=== PATIENT | female | born 1995 | race Caucasian/White ===

== ENCOUNTER 2016-11-15 12:50 | Emergency (ER) | payer SELFPAY ==
[~2016-11-15] VITALS: Ht 167.6 cm; Wt 102.0 kg
[~2016-11-15 12:50] MED LIST: AMOX250S2 PO; CLIN1CAP5 PO; HYDR7.5S PO; PERC5TAB12 PO
[2016-11-15 12:53] VITALS: BP 130/62; PULSE 74; RESP 17; TEMP 98.4; O2SAT 100
--- NOTE | 2016-11-15 13:17 | PD ---
HPI Chief Complaint: Musculoskeletal Complaint Time Seen by Provider: 13:09 Travel History International Travel<30 days: No Contact w/Intl Traveler<30days: No Traveled to known affect area: No History of Present Illness HPI This is a 21-year-old female who presents today with complaints of left shoulder and upper humerus pain. Patient states that yesterday she "blacked out " and fell onto her left side. She states that she was evaluated and seen at [facility]. She states that it's CAT scans and x-rays and did not find any obvious findings. She states that at that time they did not do an x-ray of her left shoulder but she was not having as much pain at that time. She denies any other areas of discomfort. She reports pain with movement therefore limited range of motion secondary to pain. [facility] Past Medical History Medical History: Denies Significant Hx Diminished Hearing: No Immunizations Current: Yes ?: Not LMP: 10/23/16 Past Surgical History Tonsillectomy: Yes (09/05/2014) Social History Alcohol Use: No Tobacco Use: No Substance Use: No Allergies-Medications (Allergen,Severity, Reaction): Coded Allergies: Cipro (Verified Adverse Reaction, Intermediate, N/V, 11/15/16) Reported Meds & Prescriptions Reported Meds & Active Scripts Active No Active Prescriptions or Reported Medications Review of Systems Except as stated in HPI: all other systems reviewed are Neg General / Constitutional: No: Fever HENT: No: Headaches, Neck Pain Cardiovascular: No: Chest Pain or Discomfort, Palpitations Musculoskeletal: Positive: Limited ROM (secondary to pain), Pain (left shoulder and upper humerus), No: Weakness Neurologic: No: Weakness, Dizziness, Headache Physical Exam Narrative GENERAL: Well-nourished, well-developed patient in no distress. SKIN: Focused skin assessment warm/dry. HEAD: Normocephalic/atraumatic. EYES: No scleral icterus. No injection or drainage. NECK: Supple, trachea midline. No JVD or lymphadenopathy. MUSCULOSKELETAL: On examination of the patient's left shoulder, she has tenderness in her left lateral upper humeral distribution. There is no obvious bony deformity. On abduction, she has pain. It is relieved with abduction. NEUROLOGICAL: Awake and alert. Cranial nerves II through XII intact. Motor grossly within normal limits. Five out of 5 muscle strength in all muscle groups. Normal speech. Data Data Last Documented VS Vital Signs Date Time Temp Pulse Resp B/P Pulse Ox O2 Delivery O2 Flow Rate FiO2 11/15/16 12:53 98.4 74 17 130/62 100 Orders Humerus (Min 2vws) (11/15/16 13:11) Shoulder, Limited(2vws) (11/15/16 13:11) MDM Medical Decision Making Medical Screen Exam Complete: Yes Emergency Medical Condition: Yes Differential Diagnosis Contusion versus fracture versus acromioclavicular separation Narrative Course 21-year-old female who had a syncopal episode yesterday, presents today with rectal left shoulder and proximal humerus pain. Patient states that she was fully evaluated yesterday at [facility] however did not have pain at that time. The patient has pain but no obvious instability. X-rays of the humerus and shoulder show no evidence of acute findings. She'll be placed in a sling and swath and told to keep in 7 days per she is instructed to remove it 3-4 times daily and do small circular motions to keep it from freezing up. If pain persists she is instructed to follow up with an orthopedic surgeon. Diagnosis Primary Impression: Contusion of left shoulder Additional Instructions: Wear shoulder immobilizer 7 days. Remove 3-4 times daily and do small circular motions for 5 minutes to keep shoulder from freezing. If pain continues, follow up with orthopedic surgeon. Motrin for discomfort. Ice 24 hours, then moist heat. Scripts No Active Prescriptions or Reported Meds Disposition: 01 DISCHARGE HOME Condition: Stable Luciano David MD Nov 15, 2016 13:17
--- NOTE | 2016-11-15 14:26 | RADRPT ---
EXAM DATE/TIME: 11/15/2016 13:32 [facility] COMPARISON: No previous studies available for comparison. INDICATIONS : Left shoulder pain; fall yesterday. MEDICAL HISTORY : None. SURGICAL HISTORY : None. ENCOUNTER: Initial ACUITY: 1 day PAIN SCORE: 6/10 LOCATION: Left shoulder. FINDINGS: 2 views of the left shoulder demonstrate no fracture or dislocation. Acromioclavicular joint is intac t. Visualized left chest demonstrates no acute finding. There is no soft tissue abnormality. CONCLUSION: No acute left shoulder abnormality. Clifford Simons MD on November 15, 2016 at 14:23 Board Certified Radiologist. This report was verified electronically.
--- NOTE | 2016-11-15 14:26 | RADRPT ---
EXAM DATE/TIME: 11/15/2016 13:36 [facility] COMPARISON: No previous studies available for comparison. INDICATIONS : Left arm pain; fall yesterday. MEDICAL HISTORY : None. SURGICAL HISTORY : None. ENCOUNTER: Initial ACUITY: 1 day PAIN SCORE: 6/10 LOCATION: Left humerus. FINDINGS: 2 views of the left arm demonstrate no fracture or dislocation. Mineralization is normal. No soft tis prerna abnormality or radiopaque foreign body is identified. CONCLUSION: No acute abnormality is identified. Clifford Simons MD on November 15, 2016 at 14:24 Board Certified Radiologist. This report was verified electronically.
[2016-11-15 14:48] VITALS: BP 127/76
== END 2016-11-15 15:12 | disposition home or self-care (01) ==
LOC: PHEFT 12:50
DX: S40.012A Contusion of left shoulder, initial encounter (principal); W19.XXXA Unspecified fall, initial encounter
CPT/HCPCS: 73030; 73060; 99283

== ENCOUNTER 2017-04-21 11:28 | Emergency (ER) | payer SELFPAY ==
[~2017-04-21] VITALS: Ht 167.6 cm; Wt 99.5 kg
[2017-04-21 11:31] VITALS: BP 140/79; PULSE 112; RESP 20; TEMP 98.3; O2SAT 99
--- NOTE | 2017-04-21 11:40 | PD ---
HPI Chief Complaint: Cold / Flu Symptoms Time Seen by Provider: 11:35 Travel History International Travel<30 days: No Contact w/Intl Traveler<30days: No Traveled to known affect area: No History of Present Illness HPI 22-year-old female presents for evaluation. For 3 days she has had cough, congestion, sore throat, fevers as high as 102. She reports that the cough is dry. She has been using [id number] cough and cold medications as well as Tylenol but symptoms persisted which prompted evaluation. She reports that her recently had similar symptoms. Denies rash, recent travel, abdominal pain, dysuria. No other complaints at this time. PFSH Past Medical History Diminished Hearing: No Immunizations Current: Yes ?: Not LMP: APR 10 Past Surgical History Tonsillectomy: Yes (09/05/2014) Social History Alcohol Use: No Tobacco Use: No Substance Use: No Allergies-Medications (Allergen,Severity, Reaction): Coded Allergies: ciprofloxacin (Unverified Adverse Reaction, Intermediate, N/V, 04/21/17) Reported Meds & Prescriptions Reported Meds & Active Scripts Active No Active Prescriptions or Reported Medications Review of Systems Except as stated in HPI: all other systems reviewed are Neg Physical Exam Narrative GENERAL: Well-developed well-nourished female in no acute distress SKIN: Warm and dry. HEAD: Atraumatic. Normocephalic. EYES: Pupils equal and round. No scleral icterus. No injection or drainage. ENT: No nasal bleeding or discharge. Mucous membranes pink and moist. The oropharynx is mildly erythematous. Tympanic membranes appear normal without erythema or fluid level. NECK: Trachea midline. No JVD. No lymphadenopathy. CARDIOVASCULAR: Regular rate and rhythm. No murmur appreciated. RESPIRATORY: No accessory muscle use. Clear to auscultation. Breath sounds equal bilaterally. No crackles no wheezing or rhonchi GASTROINTESTINAL: Abdomen soft, non-tender, nondistended. Hepatic and splenic margins not palpable. Data Data Last Documented VS Vital Signs Date Time Temp Pulse Resp B/P (MAP) Pulse Ox O2 Delivery O2 Flow Rate FiO2 04/21/17 11:31 98.3 112 20 140/79 (99) 99 Orders Orders Influenzae A/B Antigen (04/21/17 11:34) Group A Rapid Strep Screen (04/21/17 11:38) Ibuprofen (Motrin) (04/21/17 11:45) Strep Culture (Group A) (04/21/17 11:40) Ed Discharge Order (04/21/17 12:10) [facility] Medical Decision Making Medical Screen Exam Complete: Yes Emergency Medical Condition: Yes Medical Record Reviewed: Yes Differential Diagnosis Influenza, pharyngitis, bronchitis, pneumonia, sinusitis, rhinitis Narrative Course 22-year-old female 3 days of sore throat, cough, congestion, fevers. The patient will be given ibuprofen. Rapid strep screen and influenza antigen tests will be performed. Positive for influenza A. The patient is outside of the treatment window for Tamiflu. She is stable for discharge. She will be given a note for work. Diagnosis Primary Impression: Influenza A Departure Forms: Tests/Procedures, Work Release Enter return to work date: Apr 25, 2017 Additional Instructions: Stay well hydrated well-nourished, get plenty of rest. Tylenol or Motrin for pain and fever per dosing instructions on the bottle. Return for any acutely new or worsening symptoms. Med/Other Pt SpecificInfo: No Change to Meds Scripts No Active Prescriptions or Reported Meds Disposition: 01 DISCHARGE HOME Condition: Stable Mitchell Johns Apr 21, 2017 11:40
[2017-04-21] MEDS ORDERED: IBUPROFEN 800 MG TAB PO ONE (11:45)
== END 2017-04-21 12:18 | disposition home or self-care (01) ==
LOC: PHEFT 11:28
DX: J10.1 Influenza due to other identified influenza virus with other respiratory manifestations (principal)
CPT/HCPCS: 87081; 87804; 87880; 99283

== ENCOUNTER 2017-08-17 16:01 | Emergency (ER) | payer SELFPAY ==
[~2017-08-17] VITALS: Ht 167.6 cm; Wt 96.0 kg
[2017-08-17 16:06] VITALS: BP 136/75; PULSE 115; RESP 16; TEMP 99.5; O2SAT 98
[2017-08-17 16:26] LABS: BILIRUBIN, URINE NEG (NEG); BLOOD, URINE NEG (NEG); GLUCOSE,URINE NEG (NEG); KETONE, URINE NEG (NEG); NITRITE,URINE NEG (NEG); URINE COLOR YELLOW (YELLW/STRAW); URINE LEUKOCYTE ESTERASE TRACE (NEG)
[2017-08-17] MEDS ORDERED: SODIUM CHLOR 0.9% 1000 ML INJ 1,000 ML IV SCH (16:27)
--- NOTE | 2017-08-17 16:27 | PD ---
HPI Chief Complaint: GI Complaint Time Seen by Provider: 16:18 Travel History International Travel<30 days: No Contact w/Intl Traveler<30days: No Traveled to known affect area: No History of Present Illness HPI The patient's 22 years old and arrives with a complaint of abdominal pain worsening for 2 weeks. There is a bloating sensation. The abdomen feels hard. The patient reports bowel movements and urination to be normal. She is nauseated without vomiting. Low-grade fever reported. Appetite is decreased because after eating there is a tight sensation throughout the abdomen. No similar prior episodes. PFSH Past Medical History Medical History: Denies Significant Hx Diminished Hearing: No Immunizations Current: Yes Influenza Vaccination: No ?: Not LMP: 07/30/17 Past Surgical History Tonsillectomy: Yes (09/05/2014) Social History Alcohol Use: No Tobacco Use: No Substance Use: No Allergies-Medications (Allergen,Severity, Reaction): Coded Allergies: ciprofloxacin (Unverified Adverse Reaction, Intermediate, N/V, 08/17/17) Reported Meds & Prescriptions Reported Meds & Active Scripts Active No Active Prescriptions or Reported Medications Review of Systems Except as stated in HPI: all other systems reviewed are Neg General / Constitutional: Positive: Fever (low-grade reported) Gastrointestinal: Positive: Nausea Physical Exam Narrative GENERAL: 22-year-old female no acute distress speaking sentences Vital Signs Date Time Temp Pulse Resp B/P (MAP) Pulse Ox O2 Delivery O2 Flow Rate FiO2 08/17/17 16:06 99.5 115 16 136/75 (95) 98 SKIN: Warm and dry. HEAD: Atraumatic. Normocephalic. EYES: Pupils equal and round. No scleral icterus. No injection or drainage. ENT: No nasal bleeding or discharge. Mucous membranes pink and moist. NECK: Trachea midline. No JVD. CARDIOVASCULAR: Regular rate and rhythm. RESPIRATORY: No accessory muscle use. Clear to auscultation. Breath sounds equal bilaterally. GASTROINTESTINAL: There is diffuse nonspecific tenderness about the abdomen. Generally soft. MUSCULOSKELETAL: Extremities without clubbing, cyanosis, or edema. No obvious deformities. NEUROLOGICAL: Awake and alert. No obvious cranial nerve deficits. Motor grossly within normal limits. Five out of 5 muscle strength in the arms and legs. Normal speech. PSYCHIATRIC: Appropriate mood and affect; insight and judgment normal. Data Data Last Documented VS Vital Signs Date Time Temp Pulse Resp B/P (MAP) Pulse Ox O2 Delivery O2 Flow Rate FiO2 08/17/17 16:06 99.5 115 16 136/75 (95) 98 Orders Orders Urinalysis - C+S If Indicated (08/17/17 16:08) Ed Urine Pregnancytest Poc (08/17/17 16:08) Complete Blood Count With Diff (08/17/17 16:27) Comprehensive Metabolic Panel (08/17/17 16:27) Lipase (08/17/17 16:27) Ct Abd/Pel W Iv Contrast(Rout) (08/17/17 16:27) Iv Access Insert/Monitor (08/17/17 16:27) Ecg Monitoring (08/17/17 16:27) Oximetry (08/17/17 16:27) Sodium Chlor 0.9% 1000 Ml Inj (Ns 1000 M (08/17/17 16:27) Sodium Chloride 0.9% Flush (Ns Flush) (08/17/17 16:30) Dicyclomine Inj (Bentyl Inj) (08/17/17 16:30) Iohexol 350 Inj (Omnipaque 350 Inj) (08/17/17 16:43) Ed Discharge Order (08/17/17 17:52) Mandatory Outpatient Referral (08/17/17 17:52) Labs Laboratory Tests Test 08/17/17 16:10 08/17/17 16:37 Urine Color YELLOW Urine Turbidity CLEAR Urine pH 7.0 Urine Specific Harris 1.010 Urine Protein NEG mg/dL Urine Glucose (UA) NEG mg/dL Urine Ketones NEG mg/dL Urine Occult Blood NEG Urine Nitrite NEG Urine Bilirubin NEG Urine Urobilinogen 0.2 MG/DL Urine Leukocyte Esterase TRACE Urine WBC 0-2 /hpf Urine Squamous Epithelial Cells 0-5 /hpf Microscopic Urinalysis Comment CULT NOT INDICATED White Blood Count 7.8 TH/MM3 Red Blood Count 4.37 MIL/MM3 Hemoglobin 11.4 GM/DL Hematocrit 34.3 % Mean Corpuscular Volume 78.5 FL Mean Corpuscular Hemoglobin 26.1 PG Mean Corpuscular Hemoglobin Concent 33.3 % Red Cell Distribution Width 13.0 % Platelet Count 212 TH/MM3 Mean Platelet Volume 8.4 FL Neutrophils (%) (Auto) 76.1 % Lymphocytes (%) (Auto) 15.3 % Monocytes (%) (Auto) 6.5 % Eosinophils (%) (Auto) 1.2 % Basophils (%) (Auto) 0.9 % Neutrophils # (Auto) 5.9 TH/MM3 Lymphocytes # (Auto) 1.2 TH/MM3 Monocytes # (Auto) 0.5 TH/MM3 Eosinophils # (Auto) 0.1 TH/MM3 Basophils # (Auto) 0.1 TH/MM3 CBC Comment DIFF FINAL Differential Comment Blood Urea Nitrogen 12 MG/DL Creatinine 0.94 MG/DL Random Glucose 108 MG/DL Total Protein 7.9 GM/DL Albumin 3.8 GM/DL Calcium Level 8.5 MG/DL Alkaline Phosphatase 64 U/L Aspartate Amino Transf (AST/SGOT) 12 U/L Alanine Aminotransferase (ALT/SGPT) 20 U/L Total Bilirubin 0.5 MG/DL Sodium Level 135 MEQ/L Potassium Level 3.4 MEQ/L Chloride Level 102 MEQ/L Carbon Dioxide Level 27.9 MEQ/L Anion Gap 5 MEQ/L Estimat Glomerular Filtration Rate 74 ML/MIN Lipase 122 U/L MDM Medical Decision Making Medical Screen Exam Complete: Yes Emergency Medical Condition: Yes Medical Record Reviewed: Yes Differential Diagnosis Constipation, Gastritis, Acute Cholecystitis, Biliary Colic, Pancreatitis, MENDOZA , Hepatitis, Bowel Obstruction, Cystitis, Mesenteric Ischemia, AAA, Appendicitis , Renal Stone/Hydronephrosis, GERD, perforated viscous Narrative Course CBC & BMP Diagram 08/17/17 16:37 Total Protein 7.9, Albumin 3.8, Calcium Level 8.5, Alkaline Phosphatase 64, Aspartate Amino Transf (AST/SGOT) 12 L, Alanine Aminotransferase (ALT/SGPT) 20, Total Bilirubin 0.5 Last Impressions Abdomen/Pelvis CT 08/17/17 3527 Signed Impressions: Service Date/Time: Thursday, August 17, 2017 16:37 - CONCLUSION: 1. Very large 17.1 x 11.2 x 17.5 cm uniformly hypodense cystic mass arising from the pelvis, most likely ovarian in etiology. This is an ovarian cystic neoplasm until proven otherwise. 2. Resultant moderate right and very mild left-sided hydroureteronephrosis. 3. 3.8 cm cystic right adnexal lesion also likely ovarian in etiology but otherwise within normal size criteria given patient's age. 4. Trace free fluid in the pelvis. Gerardo Naik MD Obviously the patient need gynecologic surgery as soon as possible. There is no medical emergency tonight however such that we cannot simply admit the patient have it done more expeditious;y. My main concern is the hydronephrosis on the right side however there is normal renal function right now. This could worsen however when exactly it might is indeterminate. I spoke with Dr. Mcdermott of gynecology for quite some time. I tried to call Dr. Mcmillan of gynecology oncology as well however his office was closed and this is not a patient of his so there was no call back. Unfortunately the patient is self-pay right now which complicates follow-up. Mandatory outpatient referral was placed by me. The patient assistance program information was provided to the patient. Fortunately Dr. Mcdermott will see the patient tomorrow. The patient will receive all the results of her workup today to facilitate pt's care tomorrow. At this point ultrasound was reported to be unnecessary by Dr Mcdermott. Finally I did talk with the patient about finding a payer source and the use of the patient assistance program and she was quite motivated to obtain the patient assistance soon. In this scenario the patient assistance program aid is clearly and obviously necessary. Diagnosis Primary Impression: Pelvic cyst Additional Impression: Hydronephrosis Qualified Codes: N13.30 - Unspecified hydronephrosis Referrals: Shwetha Mcdermott MD, Kelly L MD Patient Assistance Program Med/Other Pt SpecificInfo: No Change to Meds Scripts No Active Prescriptions or Reported Meds Disposition: 01 DISCHARGE HOME Condition: Stable Rahul Reynolds MD August 17, 2017 16:26
[2017-08-17] MEDS ORDERED: DICYCLOMINE HCL 20 MG/2 ML VIAL IM ONE (16:30)
[2017-08-17] MEDS ORDERED: SODIUM CHLORIDE 0.9% FLUSH 10 ML FLUSH IV FLUSH PRN (16:30)
[2017-08-17 16:37] VITALS: RESP 16; O2SAT 100
[2017-08-17 16:43] LABS: WBC, URINE 0-2 /hpf (0-5)
[2017-08-17] MEDS ORDERED: IOHEXOL 350 MG/ML 10 ML VIAL (for RAD DIAG) IVCONTRAST ONE (16:43)
[2017-08-17 16:44] LABS: SQUAMOUS EPITHELIAL CELL URINE 0-5 /hpf (0-5)
[2017-08-17 16:49] LABS: CHLORIDE 102 MEQ/L (98-107); SODIUM (NA) 135 MEQ/L (136-145)
[2017-08-17 16:53] LABS: ALBUMIN 3.8 GM/DL (3.4-5.0); BICARBONATE 27.9 MEQ/L (21.0-32.0); BLOOD UREA NITROGEN 12 MG/DL (7-18); CALCIUM 8.5 MG/DL (8.5-10.1); GLUCOSE,RANDOM 108 MG/DL (74-106)
[2017-08-17 16:56] LABS: ALT (GPT) 20 U/L (10-53); AST (GOT) 12 U/L (15-37); CREATININE 0.94 MG/DL (0.50-1.00); GLOMERULAR FILTRATION RATE 74 ML/MIN (>89)
[2017-08-17 16:58] LABS: TOTAL BILIRUBIN ADULT 0.5 MG/DL (0.2-1.0); TOTAL PROTEIN 7.9 GM/DL (6.4-8.2)
[2017-08-17 16:59] LABS: ALKALINE PHOSPHATASE 64 U/L (45-117)
--- NOTE | 2017-08-17 17:04 | RADRPT ---
EXAM DATE/TIME: 08/17/2017 16:37 [facility] COMPARISON: No previous studies available for comparison. INDICATIONS : Abdominal pain from umbilicus to pelvis, bloating, and nausea for two weeks. IV CONTRAST: 100 cc Omnipaque 350 (iohexol) IV ORAL CONTRAST: No oral contrast ingested. RADIATION DOSE: 17.35 CTDIvol (mGy) MEDICAL HISTORY : None SURGICAL HISTORY : None. ENCOUNTER: Initial ACUITY: 2 weeks PAIN SCALE: 7/10 LOCATION: abdomen TECHNIQUE: Volumetric scanning of the abdomen and pelvis was performed. Using automated exposure control and ad justment of the mA and/or kV according to patient size, radiation dose was kept as low as reasonably achievable to obtain optimal diagnostic quality images. DICOM format image data is available electro nically for review and comparison. FINDINGS: LOWER LUNGS: The visualized lower lungs are clear. LIVER: Homogeneous density without lesion. There is no dilation of the biliary tree. No calcified gallston es. SPLEEN: Normal size without lesion. PANCREAS: Within normal limits. KIDNEYS: Moderate right-sided hydronephrosis extending to the distal right ureter. Very mild left-sided hydron ephrosis similarly extending to the distal right ureter. Kidneys are otherwise symmetrical without ev idence for radiopaque renal calculi or mass. ADRENAL GLANDS: Within normal limits. VASCULAR: There is no aortic aneurysm. BOWEL/MESENTERY: The stomach, small bowel, and colon demonstrate no acute abnormality. There is a small amount of free fluid in the pelvis. ABDOMINAL WALL: Within normal limits. RETROPERITONEUM: There is no lymphadenopathy. BLADDER: Decompressed and otherwise unremarkable. REPRODUCTIVE: Within normal limits. There is a large cystic mass arising from the pelvis which measures 17.1 x 11.2 x 17.5 cm. This mass measures indeterminate in density but is otherwise uniformly hypodense. There i s a second cystic mass in the right adnexa measuring 3.8 x 3.3 cm. This mass is separate from the juan daron which otherwise appears grossly unremarkable for age by CT scan. INGUINAL: There is no lymphadenopathy or hernia. MUSCULOSKELETAL: Within normal limits for patient age. CONCLUSION: 1. Very large 17.1 x 11.2 x 17.5 cm uniformly hypodense cystic mass arising from the pelvis, most lik madhu ovarian in etiology. This is an ovarian cystic neoplasm until proven otherwise. 2. Resultant moderate right and very mild left-sided hydroureteronephrosis. 3. 3.8 cm cystic right adnexal lesion also likely ovarian in etiology but otherwise within normal siz e criteria given patient's age. 4. Trace free fluid in the pelvis. Gerardo Naik MD on August 17, 2017 at 16:54 Board Certified Radiologist. This report was verified electronically.
[2017-08-17 17:11] LABS: AUTOMATED NEUTROPHIL # 5.9 TH/MM3 (1.8-7.7); BASOPHIL # 0.1 TH/MM3 (0-0.2); BASOPHIL % 0.9 % (0.0-2.0); EOSINOPHIL # 0.1 TH/MM3 (0-0.4); EOSINOPHIL % 1.2 % (0.0-4.0); HEMATOCRIT 34.3 % (35.0-46.0); HEMOGLOBIN 11.4 GM/DL (11.6-15.3); LYMPH % 15.3 % (9.0-44.0); LYMPHOCYTE # 1.2 TH/MM3 (1.0-4.8); MEAN CELL VOLUME 78.5 FL (80.0-100.0); MEAN CORPUSCULAR HEMOGLOBIN 26.1 PG (27.0-34.0); MEAN CORPUSCULAR HGB CONC 33.3 % (32.0-36.0); MEAN PLATELET VOLUME 8.4 FL (7.0-11.0); MONO % 6.5 % (0.0-8.0); MONOCYTE # 0.5 TH/MM3 (0-0.9); NEUT % 76.1 % (16.0-70.0); PLATELET COUNT 212 TH/MM3 (150-450); RED BLOOD COUNT 4.37 MIL/MM3 (4.00-5.30); WHITE BLOOD COUNT 7.8 TH/MM3 (4.0-11.0)
[2017-08-17 18:20] VITALS: BP 125/97
== END 2017-08-17 18:22 | disposition home or self-care (01) ==
LOC: PHED 16:01
DX: N94.89 Other specified conditions associated with female genital organs and menstrual cycle (principal); N13.30 Unspecified hydronephrosis; N83.201 Unspecified ovarian cyst, right side; Z88.1 Allergy status to other antibiotic agents
CPT/HCPCS: 74177; 80053; 81001; 83690; 84703; 85025; 96360; 96372; 99285; J0500; J7030; Q9967

== ENCOUNTER 2017-08-25 18:29 | Inpatient (IN) | payer MEDICAID ==
[~2017-08-25] VITALS: Ht 167.6 cm; Wt 96.1 kg
[2017-08-25 18:45] VITALS: BP 128/61; PULSE 80; RESP 18; TEMP 98.9; O2SAT 100
--- NOTE | 2017-08-25 19:24 | PD ---
HPI Chief Complaint: Abdominal Pain Time Seen by Provider: 19:07 Travel History International Travel<30 days: No Contact w/Intl Traveler<30days: No Traveled to known affect area: No History of Present Illness HPI 22-year-old white female presents emergency department accompanied by her mother and her significant other for evaluation of worsening pelvic pain associated with a large ovarian mass. Patient states that she was seen in the emergency department approximately 1 week ago and was determined to have a 17 cm pelvic mass with some right-sided hydronephrosis. Patient was referred to a mechanic who did not follow her up because of financial reasons. She did follow-up with her own mechanic Dr. Dwyer was seen yesterday. They had made plans to perform elective surgery after she arranges financial services for anesthesia in the operating room. She has an appointment on Tuesday with patient assistance. She has been declined by Medicaid. Patient presented to the ER today because of increasing pain. She states that the pain is moderate at times but can be severe. She has had some associated nausea vomiting states that she is unable to keep anything down. She has had some increasing urinary frequency. She denies any fever chills. No upper abdominal pain. No abnormal vaginal bleeding or discharging. No dysuria or hematuria. No back pain. PFSH Past Medical History Narrative Medical Pelvic mass Diminished Hearing: No Immunizations Current: Yes Tetanus Vaccination: Unknown Influenza Vaccination: No ?: Unknown LMP: 07/27/17 Menopausal: No : 0 Para: 0 Ovarian Cysts: Yes Past Surgical History Tonsillectomy: Yes (2016) Social History Alcohol Use: No Tobacco Use: No Substance Use: No Allergies-Medications (Allergen,Severity, Reaction): Coded Allergies: ciprofloxacin (Unverified Adverse Reaction, Intermediate, N/V, 08/25/17) Reported Meds & Prescriptions Reported Meds & Active Scripts Active No Active Prescriptions or Reported Medications Review of Systems Except as stated in HPI: all other systems reviewed are Neg Physical Exam Narrative GENERAL: Well-developed, well-nourished in no apparent distress. Nontoxic appearing. HEAD: Normocephalic, atraumatic. EYES: Pupils equal round and reactive. Extraocular motions intact. No scleral icterus. No injection or drainage. ENT: Nose clear. Throat without erythema, tonsillar hypertrophy or exudate. Uvula midline. Airway patent. NECK: Trachea midline. Supple, nontender, moves head freely. No central bony tenderness or spasm. CARDIOVASCULAR: Regular rate and rhythm without murmurs, gallops, or rubs. RESPIRATORY: Clear to auscultation. Breath sounds equal bilaterally. No wheezes , rales, or rhonchi. GASTROINTESTINAL: Abdomen soft, mild diffuse tenderness with large lower abdominal pelvic mass palpable. No guarding or rebound . EXTREMITIES: No clubbing, cyanosis, or edema. No joint tenderness. BACK: Nontender without deformity. No flank tenderness. NEUROLOGICAL: Awake, alert and oriented x 3 .Cranial nerves grossly intact. Motor and sensory grossly within normal limits. Normal speech. Data Data Last Documented VS Vital Signs Date Time Temp Pulse Resp B/P (MAP) Pulse Ox O2 Delivery O2 Flow Rate FiO2 08/25/17 19:43 82 20 144/64 (90) 98 Room Air 08/25/17 18:45 98.9 Orders Orders Complete Blood Count With Diff (08/25/17 19:18) Comprehensive Metabolic Panel (08/25/17 19:18) Lipase (08/25/17 19:18) Urinalysis - C+S If Indicated (08/25/17 19:18) Iv Access Insert/Monitor (08/25/17 19:18) Ed Urine Pregnancytest Poc (08/25/17 19:18) Sodium Chlor 0.9% 1000 Ml Inj (Ns 1000 M (08/25/17 19:30) Diphenhydramine Inj (Benadryl Inj) (08/25/17 19:30) Metoclopramide Inj (Reglan Inj) (08/25/17 19:30) Ketorolac Inj (Toradol Inj) (08/25/17 19:30) Prothrombin Time / Inr (Pt) (08/25/17 20:15) Act Partial Throm Time (Ptt) (08/25/17 20:15) Type And Screen (08/25/17 20:15) Admit Order (Ed Use Only) (08/25/17 21:07) Npo After Midnight W/ Po Meds (08/26/17 Breakfast) Labs Laboratory Tests Test 08/25/17 19:30 08/25/17 20:40 White Blood Count 6.2 TH/MM3 Red Blood Count 4.53 MIL/MM3 Hemoglobin 11.8 GM/DL Hematocrit 36.4 % Mean Corpuscular Volume 80.4 FL Mean Corpuscular Hemoglobin 26.1 PG Mean Corpuscular Hemoglobin Concent 32.5 % Red Cell Distribution Width 13.6 % Platelet Count 333 TH/MM3 Mean Platelet Volume 7.3 FL Neutrophils (%) (Auto) 60.5 % Lymphocytes (%) (Auto) 30.0 % Monocytes (%) (Auto) 6.1 % Eosinophils (%) (Auto) 2.7 % Basophils (%) (Auto) 0.7 % Neutrophils # (Auto) 3.7 TH/MM3 Lymphocytes # (Auto) 1.8 TH/MM3 Monocytes # (Auto) 0.4 TH/MM3 Eosinophils # (Auto) 0.2 TH/MM3 Basophils # (Auto) 0.0 TH/MM3 CBC Comment DIFF FINAL Differential Comment Urine Color YELLOW Urine Turbidity CLEAR Urine pH 7.5 Urine Specific [place] 1.010 Urine Protein NEG mg/dL Urine Glucose (UA) NEG mg/dL Urine Ketones NEG mg/dL Urine Occult Blood NEG Urine Nitrite NEG Urine Bilirubin NEG Urine Urobilinogen LESS THAN 2.0 MG/DL Urine Leukocyte Esterase TRACE Urine WBC 1 /hpf Urine Squamous Epithelial Cells 3 /hpf Urine Bacteria RARE /hpf Urine Mucus FEW /lpf Microscopic Urinalysis Comment CULT NOT INDICATED Blood Urea Nitrogen 9 MG/DL Creatinine 1.07 MG/DL Random Glucose 83 MG/DL Total Protein 8.1 GM/DL Albumin 3.9 GM/DL Calcium Level 9.2 MG/DL Alkaline Phosphatase 72 U/L Aspartate Amino Transf (AST/SGOT) 17 U/L Alanine Aminotransferase (ALT/SGPT) 41 U/L Total Bilirubin 0.3 MG/DL Sodium Level 138 MEQ/L Potassium Level 3.5 MEQ/L Chloride Level 102 MEQ/L Carbon Dioxide Level 26.4 MEQ/L Anion Gap 10 MEQ/L Estimat Glomerular Filtration Rate 64 ML/MIN Lipase 140 U/L Prothrombin Time 10.9 SEC Prothromb Time International Ratio 1.1 RATIO Activated Partial Thromboplast Time 27.8 SEC [facility] Medical Decision Making Medical Screen Exam Complete: Yes Emergency Medical Condition: Yes Medical Record Reviewed: Yes Interpretation(s) CBC & BMP Diagram 08/25/17 19:30 Total Protein 8.1, Albumin 3.9, Calcium Level 9.2, Alkaline Phosphatase 72, Aspartate Amino Transf (AST/SGOT) 17, Alanine Aminotransferase (ALT/SGPT) 41, Total Bilirubin 0.3 Differential Diagnosis Differential diagnosis: Pelvic mass, obstructive uropathy, ovarian torsion, bowel obstruction, infection Narrative Course IV access is obtained. Routine laboratory tests including CBC, chemistry, lipase, UA have been ordered. Patient is given a liter bolus normal saline, Benadryl 50 mg IV, Reglan 10 mg IV, and 50 mg of Toradol IV. We will go ahead and contact Dr. Dwyer directly to determine her next course of care. I spoke with Dr. Dwyer. She has requested that the patient be admitted to the [facility] service and she be the student union consultant. She will perform surgery tomorrow. She would like the patient to be given 2 bottles of magnesium citrate as a bowel prep. The patient is to maintain n.p.o. status. The case has been discussed with Dr. Sanjuana Cochran who has agreed to admit the patient. He will consult Dr. Dwyer. Diagnosis Primary Impression: Pelvic mass Additional Impressions: abdominal pain Vomiting Scripts No Active Prescriptions or Reported Meds Condition: Stable Gabe Kuo August 25, 2017 19:24
[2017-08-25] MEDS ORDERED: KETOROLAC TROMETHAMINE 30 MG/ML (IVP) VIAL IV PUSH ONE (19:30)
[2017-08-25] MEDS ORDERED: SODIUM CHLOR 0.9% 1000 ML INJ 1,000 ML IV ONE (19:30)
[2017-08-25] MEDS ORDERED: METOCLOPRAMIDE HCL 10 MG/2 ML VIAL IV PUSH ONE (19:30)
[2017-08-25] MEDS ORDERED: diphenhydrAMINE HCL 50 MG/ML VIAL IV PUSH ONE (19:30)
[2017-08-25 19:43] VITALS: BP 144/64; PULSE 82; RESP 20; O2SAT 98
[2017-08-25 19:52] LABS: AUTOMATED NEUTROPHIL # 3.7 TH/MM3 (1.8-7.7); BASOPHIL % 0.7 % (0.0-2.0); EOSINOPHIL # 0.2 TH/MM3 (0-0.4); EOSINOPHIL % 2.7 % (0.0-4.0); HEMATOCRIT 36.4 % (35.0-46.0); HEMOGLOBIN 11.8 GM/DL (11.6-15.3); LYMPHOCYTE # 1.8 TH/MM3 (1.0-4.8); MEAN CELL VOLUME 80.4 FL (80.0-100.0); MEAN CORPUSCULAR HEMOGLOBIN 26.1 PG (27.0-34.0); MEAN CORPUSCULAR HGB CONC 32.5 % (32.0-36.0); MEAN PLATELET VOLUME 7.3 FL (7.0-11.0); MONO % 6.1 % (0.0-8.0); MONOCYTE # 0.4 TH/MM3 (0-0.9); NEUT % 60.5 % (16.0-70.0); PLATELET COUNT 333 TH/MM3 (150-450); RED BLOOD COUNT 4.53 MIL/MM3 (4.00-5.30); RED CELL DISTRIBUTION WIDTH 13.6 % (11.6-17.2); WHITE BLOOD COUNT 6.2 TH/MM3 (4.0-11.0)
[2017-08-25 20:06] LABS: BACTERIA, URINE RARE /hpf; BILIRUBIN, URINE NEG (NEG); BLOOD, URINE NEG (NEG); GLUCOSE,URINE NEG (NEG); KETONE, URINE NEG (NEG); MUCUS URINE FEW /lpf (OCC); NITRITE,URINE NEG (NEG); PH, URINE 7.5 (5.0-8.5); SQUAMOUS EPITHELIAL CELL URINE 3 /hpf (0-5); URINE COLOR YELLOW (YELLW/STRAW); URINE LEUKOCYTE ESTERASE TRACE (NEG)
[2017-08-25 20:08] LABS: ALBUMIN 3.9 GM/DL (3.4-5.0); ALT (GPT) 41 U/L (10-53); AST (GOT) 17 U/L (15-37); BICARBONATE 26.4 MEQ/L (21.0-32.0); BLOOD UREA NITROGEN 9 MG/DL (7-18); CALCIUM 9.2 MG/DL (8.5-10.1); CHLORIDE 102 MEQ/L (98-107); CREATININE 1.07 MG/DL (0.50-1.00); GLOMERULAR FILTRATION RATE 64 ML/MIN (>89); GLUCOSE,RANDOM 83 MG/DL (74-106); SODIUM (NA) 138 MEQ/L (136-145)
[2017-08-25 20:11] LABS: ALKALINE PHOSPHATASE 72 U/L (45-117); TOTAL BILIRUBIN ADULT 0.3 MG/DL (0.2-1.0); TOTAL PROTEIN 8.1 GM/DL (6.4-8.2)
[2017-08-25 20:59] LABS: INTERNATIONAL NORMALIZED RATIO 1.1 RATIO; PROTHROMBIN TIME - PATIENT 10.9 SEC (9.8-11.6)
[2017-08-25] MEDS ORDERED: BISACODYL 10 MG SUPP RECTAL PRN (21:15)
[2017-08-25] MEDS ORDERED: LACTULOSE SYRUP 20 GM/30 ML CUP PO PRN (21:15)
[2017-08-25] MEDS: SODIUM CHLOR 0.9% 1000 ML INJ 1,000 ML IV SCH (21:15)
[2017-08-25] MEDS ORDERED: ACETAMINOPHEN 325 MG TAB PO PRN (21:15)
[2017-08-25] MEDS ORDERED: ONDANSETRON ODT 4 MG TAB PO PRN (21:15)
[2017-08-25] MEDS ORDERED: SODIUM CHLORIDE 0.9% FLUSH 10 ML FLUSH IV FLUSH PRN (21:15)
[2017-08-25] MEDS ORDERED: ACETAMINOPHEN/HYDROcodone 325 MG/7.5 MG TAB PO PRN (21:15)
[2017-08-25] MEDS ORDERED: SENNOSIDES 8.6 MG TAB PO PRN (21:15)
[2017-08-25] MEDS ORDERED: NALOXONE HCL 0.4 MG/ML AMP IV PUSH PRN (21:15)
[2017-08-25] MEDS ORDERED: MAGNESIUM HYDROXIDE SUSP 30 ML CUP PO PRN (21:15)
--- NOTE | 2017-08-25 21:21 | HHI.HP ---
[facility] No Primary Care Physician Admission Diagnosis Pelvic Mass, Intractable abdominal/pelvic pain Diagnoses: Chief Complaint: Pain due to pelvic mass. Travel History International Travel<30 Days: No Contact w/Intl Traveler <30 Da: No Traveled to Known Affected Are: No History of Present Illness Ms. Sequeira is a 22-year-old female with recently diagnosed pelvic mass who presented to the emergency department on 08/25/2017 due to worsening pelvic pain. 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 Patient followed up with her regional recruiter Dr. Dwyer. The tentative plan was to do elective surgery after financial arrangements are made. However due to worsening pain patient return to the emergency department today. ED provider contacted Dr. Dwyer who will operate on patient on 2017. Review of Systems Except as stated in HPI: all other systems reviewed are Neg Past Family Social History Past Medical History Pelvic mass Past Surgical History Tonsillectomy Reported Medications Patient does not take any medication on a regular basis Allergies: Coded Allergies: ciprofloxacin (Unverified Adverse Reaction, Intermediate, N/V, 08/25/17) Social History Patient denies using tobacco, alcohol, illicit drugs Physical Exam Vital Signs Vital Signs Date Time Temp Pulse Resp B/P (MAP) Pulse Ox O2 Delivery O2 Flow Rate FiO2 08/25/17 19:43 82 20 144/64 (90) 98 Room Air 08/25/17 19:21 20 08/25/17 18:45 98.9 80 18 128/61 (83) 100 Physical Exam GENERAL: This is a well-nourished, well-developed patient, in no apparent distress. SKIN: No rashes, ecchymoses or lesions. Warm and dry. HEAD: Atraumatic. Normocephalic. No temporal or scalp tenderness. EYES: Pupils equal round and reactive. No injection or drainage. ENT: Nose without bleeding, purulent drainage or septal hematoma. Airway patent. NECK: Trachea midline. No lymphadenopathy. Supple, nontender, no meningeal signs. CARDIOVASCULAR: Regular rate and rhythm without murmurs, gallops, or rubs. No JVD. RESPIRATORY: Clear to auscultation. Breath sounds equal bilaterally. No wheezes , rales, or rhonchi. GASTROINTESTINAL: Abdomen soft, non-tender, nondistended. No guarding. Large mass palpated. MUSCULOSKELETAL: Extremities without clubbing, cyanosis, or edema. NEUROLOGICAL: Awake and alert. Cranial nerves II through XII intact. No focal neurological deficits. Normal speech. Laboratory Laboratory Tests Test 08/25/17 19:30 08/25/17 20:40 White Blood Count 6.2 Red Blood Count 4.53 Hemoglobin 11.8 Hematocrit 36.4 Mean Corpuscular Volume 80.4 Mean Corpuscular Hemoglobin 26.1 Mean Corpuscular Hemoglobin Concent 32.5 Red Cell Distribution Width 13.6 Platelet Count 333 Mean Platelet Volume 7.3 Neutrophils (%) (Auto) 60.5 Lymphocytes (%) (Auto) 30.0 Monocytes (%) (Auto) 6.1 Eosinophils (%) (Auto) 2.7 Basophils (%) (Auto) 0.7 Neutrophils # (Auto) 3.7 Lymphocytes # (Auto) 1.8 Monocytes # (Auto) 0.4 Eosinophils # (Auto) 0.2 Basophils # (Auto) 0.0 CBC Comment DIFF FINAL Differential Comment Urine Color YELLOW Urine Turbidity CLEAR Urine pH 7.5 Urine Specific [place] 1.010 Urine Protein NEG Urine Glucose (UA) NEG Urine Ketones NEG Urine Occult Blood NEG Urine Nitrite NEG Urine Bilirubin NEG Urine Urobilinogen LESS THAN 2.0 Urine Leukocyte Esterase TRACE Urine WBC 1 Urine Squamous Epithelial Cells 3 Urine Bacteria RARE Urine Mucus FEW Microscopic Urinalysis Comment CULT NOT INDICATED Blood Urea Nitrogen 9 Creatinine 1.07 Random Glucose 83 Total Protein 8.1 Albumin 3.9 Calcium Level 9.2 Alkaline Phosphatase 72 Aspartate Amino Transf (AST/SGOT) 17 Alanine Aminotransferase (ALT/SGPT) 41 Total Bilirubin 0.3 Sodium Level 138 Potassium Level 3.5 Chloride Level 102 Carbon Dioxide Level 26.4 Anion Gap 10 Estimat Glomerular Filtration Rate 64 Lipase 140 Prothrombin Time 10.9 Prothromb Time International Ratio 1.1 Activated Partial Thromboplast Time 27.8 Result Diagram: 08/25/17192908/25/171929 Imaging CT abd/pelvis from 08/17/2017 CONCLUSION: 1. Very large 17.1 x 11.2 x 17.5 cm uniformly hypodense cystic mass arising from the pelvis, most likely ovarian in etiology. This is an ovarian cystic neoplasm until proven otherwise. 2. Resultant moderate right and very mild left-sided hydroureteronephrosis. 3. 3.8 cm cystic right adnexal lesion also likely ovarian in etiology but otherwise within normal size criteria given patient's age. 4. Trace free fluid in the pelvis. Caprini VTE Risk Assessment Caprini VTE Risk Assessment: No/Low Risk (score <= 1) Caprini Risk Assessment Model Point Value = 1 Point Value = 2 Point Value = 3 Point Value = 5 Age 41-60 Minor surgery BMI > 25 kg/m2 Swollen legs Varicose veins or History of unexplained or recurrent spontaneous Oral contraceptives or hormone replacement Sepsis (< 1 month) Serious lung disease, including pneumonia (< 1 month) Abnormal pulmonary function Acute myocardial infarction Congestive heart failure (< 1 month) History of inflammatory bowel disease Medical patient at bed rest Age 61-74 Arthroscopic surgery Major open surgery (> 45 min) Laparoscopic surgery (> 45 min) Malignancy Confined to bed (> 72 hours) Immobilizing plaster cast Central venous access Age >= 75 History of VTE Family history of VTE Factor V Leiden Prothrombin [id number] Lupus anticoagulant Anticardiolipin antibodies Elevated serum homocysteine Heparin-induced thrombocytopenia Other congenital or acquired thrombophilia Stroke (< 1 month) Elective arthroplasty Hip, pelvis, or leg fracture Acute spinal cord injury (< 1 month) Prophylaxis Regimen Total Risk Factor Score Risk Level Prophylaxis Regimen 0-1 Low Early ambulation 2 Moderate Order ONE of the following: *Sequential Compression Device (SCD) *Heparin 5000 units SQ BID 3-4 Higher Order ONE of the following medications: *Heparin 5000 units SQ TID *Enoxaparin/Lovenox 40 mg SQ daily (WT < 150 kg, CrCl > 30 mL/min) *Enoxaparin/Lovenox 30 mg SQ daily (WT < 150 kg, CrCl > 10-29 mL/min) *Enoxaparin/Lovenox 30 mg SQ BID (WT < 150 kg, CrCl > 30 mL/min) AND/OR *Sequential Compression Device (SCD) 5 or more Highest Order ONE of the following medications: *Heparin 5000 units SQ TID (Preferred with Epidurals) *Enoxaparin/Lovenox 40 mg SQ daily (WT < 150 kg, CrCl > 30 mL/min) *Enoxaparin/Lovenox 30 mg SQ daily (WT < 150 kg, CrCl > 10-29 mL/min) *Enoxaparin/Lovenox 30 mg SQ BID (WT < 150 kg, CrCl > 30 mL/min) AND *Sequential Compression Device (SCD) Assessment and Plan Problem List: (1) Ovarian cystic mass ICD Code: N83.209 - Unspecified ovarian cyst, unspecified side Assessment and Plan Ms. Sequeira is a 22-year-old female with a recently diagnosed very large hypodense cystic mass likely ovarian etiology who presents to the emergency department due to worsening pelvic pain. Patient was diagnosed with a pelvic mass on 08/17/2017 after she had a CT abdomen pelvis. 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 -Consult Dr. Dwyer for surgical intervention on 08/26/2017. -Acetaminophen, [place] for pain as needed. Mild acute kidney injury -Creatinine 1.06 GFR 64. -We will provide gentle hydration. Avoid nephrotoxins. Full code. Ambulation, SCDs. Physician Certification 2 Midnight Certification Type: Admission for Inpatient Services Order for Inpatient Services The services are ordered in accordance with Medicare regulations or non- Medicare payer requirements, as applicable. In the case of services not specified as inpatient-only, they are appropriately provided as inpatient services in accordance with the 2-midnight benchmark. Estimated LOS (days): 2 days is the estimated time the patient will need to remain in the hospital, assuming treatment plan goals are met and no additional complications. Post-Hospital Plan: Home Marcel Cochran DO August 25, 2017 9:21 pm
[2017-08-25] MEDS ORDERED: MAGNESIUM CITRATE SOLN 300 ML BTL PO ONE (21:45)
[2017-08-25 21:51] VITALS: BP 133/80; PULSE 98; RESP 20; O2SAT 100
[2017-08-26] MEDS ORDERED: ceFAZolin 2 GM PREMIX 50 ML IV SCH (00:30)
[2017-08-26] MEDS ORDERED: ZOLPIDEM TARTRATE 5 MG TAB PO PRN ×2 (00:30→20:30)
--- NOTE | 2017-08-26 00:43 | PD.CONS ---
HPI Chief Complaint large pelvic mass, [address], nausea, vomiting, last BM yesterday, LMP 07/27/17 Date Seen: August 26, 2017 Time Seen: 00:35 Travel History International Travel<30 Days: No Contact w/Intl Traveler<30Days: No Known Affected Area: No History of Present Illness HPI 22 y/o G0 large pelvic mass, seen in [place] [facility] CT 17 cm mass , likely ovarian, 3cm rt ovarian cyst, mild to mod bilat hydronephrosis, no FF , no adenopathy Last Menstrual Period: Jul 27, 2017 History Past Medical History Narrative Medical last seen by me in 2015 for colposcopy in office Medical History: Denies Significant Hx Obstetric History Obstetric History G0 Past Surgical History Narrative Surgical tonsillectomy Family History Narrative Family History grandmother ovarian cancer Social History Alcohol Use: No Tobacco Use: No Substance Abuse: No Allergies-Medications (Allergen,Severity, Reaction): Coded Allergies: ciprofloxacin (Unverified Adverse Reaction, Intermediate, N/V, 08/25/17) Comments nausea, vomiting Home Meds No Active Prescriptions or Reported Meds Review of Systems General / Constitutional: No: Fever, Weight Gain, Chills, Other Eyes: No: Diploplia, Blurred Vision, Visual changes, Pain, Photophobia HENT: No: Headaches, Vertigo, Lightheadedness Cardiovascular: No: Irregular Rhythm, Chest Pain or Discomfort, Palpitations, Tachycardia, Syncope, Varicosities, Edema, Cyanosis Respiratory: No: Cough, Short of Breath, Other Gastrointestinal: Nausea, Vomiting, No: Diarrhea Genitourinary: No: Decreased Urinary Output, Oliguria Musculoskeletal: No: Limited ROM, Weakness, Cramping, Edema, Pain Skin: No Rash, No Itching, No Dryness, No Lumps, No Change in Pigmentation, No Change in Nails, No Alopecia, No Lesions Neurologic: No: Weakness, Dizziness, Syncope, Focal Abnormalities, Coordination Problem, Headache, Slurred Speech, Seizures Psychiatric: No: Depression, Suicidal Ideations, Homicidal Ideation Endocrine: No: Heat Intolerance, Cold Intolerance, Polydipsia, Polyuria, Other Physical Exam Vital Signs Date Time Temp Pulse Resp B/P (MAP) Pulse Ox O2 Delivery O2 Flow Rate FiO2 08/25/17 21:51 98 20 133/80 (97) 100 Room Air 08/25/17 19:43 82 20 144/64 (90) 98 Room Air 08/25/17 19:21 20 08/25/17 18:45 98.9 80 18 128/61 (83) 100 Narrative GENERAL: Well-nourished, well-developed patient. SKIN: Warm and dry. HEAD: Normocephalic and atraumatic. EYES: No scleral icterus. No injection or drainage. ENT: No nasal drainage noted. Mucous membranes pink. Airway patent. NECK: Supple, trachea midline. No JVD. CARDIOVASCULAR: Regular rate and rhythm without murmurs, gallops, or rubs. RESPIRATORY: Breath sounds equal bilaterally. No accessory muscle use. BREASTS:deferred ABDOMEN/GI: Abdomen soft, non-tender, bowel sounds present, no rebound, no guarding 20-24 wks size mass GENITOURINARY: External Genitalia: intact and normal in appearance BUS glands: [-] Cervix: [-] Dilatation: [-] Effacement: [-] Station: [-] Presentation: [-] Membranes: [intact or ruptured] Uterine Contractions: [-] ] EXTREMITIES: No cyanosis or edema. BACK: Nontender without obvious deformity. No CVA tenderness. NEUROLOGICAL: Awake and alert. Motor and sensory grossly within normal limits. Five out of 5 muscle strength in all muscle groups. Normal speech. Data Data Vital Signs Reviewed: Yes Orders Orders Complete Blood Count With Diff (08/25/17 19:18) Comprehensive Metabolic Panel (08/25/17 19:18) Lipase (08/25/17 19:18) Urinalysis - C+S If Indicated (08/25/17 19:18) Iv Access Insert/Monitor (08/25/17 19:18) Ed Urine Pregnancytest Poc (08/25/17 19:18) Sodium Chlor 0.9% 1000 Ml Inj (Ns 1000 M (08/25/17 19:30) Diphenhydramine Inj (Benadryl Inj) (08/25/17 19:30) Metoclopramide Inj (Reglan Inj) (08/25/17 19:30) Ketorolac Inj (Toradol Inj) (08/25/17 19:30) Prothrombin Time / Inr (Pt) (08/25/17 20:15) Act Partial Throm Time (Ptt) (08/25/17 20:15) Type And Screen (08/25/17 20:15) Admit Order (Ed Use Only) (08/25/17 21:07) Npo After Midnight W/ Po Meds (08/26/17 Breakfast) Admit To Inpatient (08/25/17 ) Vital Signs (Adult) Q4H (08/25/17 21:07) Activity Oob Ad Destiny (08/25/17 21:07) Sodium Chloride 0.9% Flush (Ns Flush) (08/25/17 21:15) Sodium Chloride 0.9% Flush (Ns Flush) (08/26/17 09:00) Acetaminophen (Tylenol) (08/25/17 21:15) Scd Bilateral/Knee High ARIS.BID (08/25/17 21:07) Naloxone Inj (Narcan Inj) (08/25/17 21:15) Magnesium Hydroxide Liq (Milk Of Magnesi (08/25/17 21:15) Sennosides (Senokot) (08/25/17 21:15) Bisacodyl Supp (Dulcolax Supp) (08/25/17 21:15) Lactulose Liq (Lactulose Liq) (08/25/17 21:15) Inpatient Certification (08/25/17 ) Acetamin-Hydrocod 325-7.5 Mg (Central 7.5 (08/25/17 21:15) Diet Regular Basic (08/25/17 Dinner) Ondansetron Odt (Zofran Odt) (08/25/17 21:15) Consult Gynecology (08/25/17 ) Sodium Chlor 0.9% 1000 Ml Inj (Ns 1000 M (08/25/17 21:15) Magnesium Citrate Liq (Citroma Liq) (08/25/17 21:45) Magnesium Citrate Liq (Citroma Liq) (08/26/17 01:00) (Hub Use Only)Inp Phy Cons/Ref (08/25/17 ) Cefazolin 2 Gm Premix (Ancef 2 Gm Premix (08/26/17 00:30) Zolpidem (Ambien) (08/26/17 00:30) Labs Laboratory Tests Test 08/25/17 19:30 5/24/18 20:40 White Blood Count 6.2 Red Blood Count 4.53 Hemoglobin 11.8 Hematocrit 36.4 Mean Corpuscular Volume 80.4 Mean Corpuscular Hemoglobin 26.1 Mean Corpuscular Hemoglobin Concent 32.5 Red Cell Distribution Width 13.6 Platelet Count 333 Mean Platelet Volume 7.3 Neutrophils (%) (Auto) 60.5 Lymphocytes (%) (Auto) 30.0 Monocytes (%) (Auto) 6.1 Eosinophils (%) (Auto) 2.7 Basophils (%) (Auto) 0.7 Neutrophils # (Auto) 3.7 Lymphocytes # (Auto) 1.8 Monocytes # (Auto) 0.4 Eosinophils # (Auto) 0.2 Basophils # (Auto) 0.0 CBC Comment DIFF FINAL Differential Comment Urine Color YELLOW Urine Turbidity CLEAR Urine pH 7.5 Urine Specific [place] 1.010 Urine Protein NEG Urine Glucose (UA) NEG Urine Ketones NEG Urine Occult Blood NEG Urine Nitrite NEG Urine Bilirubin NEG Urine Urobilinogen LESS THAN 2.0 Urine Leukocyte Esterase TRACE Urine WBC 1 Urine Squamous Epithelial Cells 3 Urine Bacteria RARE Urine Mucus FEW Microscopic Urinalysis Comment CULT NOT INDICATED Blood Urea Nitrogen 9 Creatinine 1.07 Random Glucose 83 Total Protein 8.1 Albumin 3.9 Calcium Level 9.2 Alkaline Phosphatase 72 Aspartate Amino Transf (AST/SGOT) 17 Alanine Aminotransferase (ALT/SGPT) 41 Total Bilirubin 0.3 Sodium Level 138 Potassium Level 3.5 Chloride Level 102 Carbon Dioxide Level 26.4 Anion Gap 10 Estimat Glomerular Filtration Rate 64 Lipase 140 Prothrombin Time 10.9 Prothromb Time International Ratio 1.1 Activated Partial Thromboplast Time 27.8 [facility] Medical Record Reviewed: Yes Plan will admit, IV fluids, zofran, bowel prep, NPO after MN discussed with pt exp lap, possible cystectomy, possible oophorectomy R/B/A discussed, AQA, consent signed Admitting diagnosis: Pelvic Mass, Intractable abdominal/pelvic pain Attending Attestation pt seen by me Diagnosis: pelvic masspelvic pain Condition: Stable Scripts No Active Prescriptions or Reported Meds Kimberly Dwyer MD August 26, 2017 00:43
[2017-08-26] MEDS ORDERED: MAGNESIUM CITRATE SOLN 300 ML BTL PO ONE (01:00)
[2017-08-26 02:29] VITALS: BP 122/61; PULSE 81; RESP 20; O2SAT 97
[2017-08-26 06:36] VITALS: BP 145/60; PULSE 70; RESP 18; O2SAT 100
[2017-08-26] MEDS ORDERED: SODIUM CHLORIDE 0.9% FLUSH 10 ML FLUSH IV FLUSH SCH (09:00)
[2017-08-26] MEDS: SODIUM CHLOR 0.9% 1000 ML INJ 1,000 ML IV SCH (09:10)
--- NOTE | 2017-08-26 10:58 | HHI.PR ---
Subjective Remarks The patient was resting comfortably in bed. She has not had any further vomiting overnight. She says her pain is controlled at this time. She was anticipating surgery at around 2 PM. She denies any dysuria. She has had a bowel movement. Discussed with nursing. Objective Vitals Vital Signs Date Time Temp Pulse Resp B/P (MAP) Pulse Ox O2 Delivery O2 Flow Rate FiO2 08/26/17 06:36 70 18 145/60 (88) 100 Room Air 08/26/17 02:29 81 20 122/61 (81) 97 Room Air 08/25/17 21:51 98 20 133/80 (97) 100 Room Air 08/25/17 19:43 82 20 144/64 (90) 98 Room Air 08/25/17 19:21 20 08/25/17 18:45 98.9 80 18 128/61 (83) 100 I/O 08/25/17 08/25/17 08/25/17 08/26/17 08/26/17 08/26/17 07:00 15:00 23:00 07:00 15:00 23:00 Intake Total 1000 ml Balance 1000 ml Intake IV Total 1000 ml Result Diagram: 08/25/17192908/25/171929 Objective Remarks GENERAL: This is a well-nourished, well-developed patient, in no apparent distress. SKIN: No rashes, ecchymoses or lesions. Warm and dry. HEAD: Atraumatic. Normocephalic. No temporal or scalp tenderness. EYES: Pupils equal round and reactive. No injection or drainage. ENT: Nose without bleeding, purulent drainage or septal hematoma. Airway patent. NECK: Trachea midline. No lymphadenopathy. Supple, nontender, no meningeal signs. CARDIOVASCULAR: Regular rate and rhythm without murmurs, gallops, or rubs. No JVD. RESPIRATORY: Clear to auscultation. Breath sounds equal bilaterally. No wheezes , rales, or rhonchi. GASTROINTESTINAL: Abdomen soft, non-tender. No guarding. Large mass palpated. MUSCULOSKELETAL: Extremities without clubbing, cyanosis, or edema. NEUROLOGICAL: Awake and alert. Cranial nerves II through XII intact. No focal neurological deficits. Normal speech. A/P Problem List: (1) Ovarian cystic mass ICD Code: N83.209 - Unspecified ovarian cyst, unspecified side Assessment and Plan Ms. Sequeira is a 22-year-old female with a recently diagnosed very large hypodense cystic mass likely ovarian in etiology who presents to the emergency department due to worsening pelvic pain. Patient was diagnosed with a pelvic mass on 08/17/2017 after she had a CT abdomen pelvis. 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 OBGYN consult appreciated. - Dr. Dwyer planning on surgical intervention on 08/26/2017. - Acetaminophen, [place] for pain as needed. N/V S/t above. Improved. - antiemetics as needed. - IVFs. Mild acute kidney injury Creatinine 1.06 GFR 64 on admission. - We will provide gentle hydration. Avoid nephrotoxins. Full code. Ambulation, SCDs. Discharge Planning Awaiting surgery Hossein Deleon DO August 26, 2017 10:58
[2017-08-26] MEDS ORDERED: POTASSIUM CHLORIDE INJ 10 MEQ in DEXT 5%-NACL 0.9% 1000 ML INJ 1,000 ML IV SCH (11:00)
[2017-08-26 12:00] VITALS: BP 118/64; PULSE 60; RESP 18; TEMP 97.9; O2SAT 100
[2017-08-26] MEDS ORDERED: PROPOFOL 200 MG/20 ML AMP IV ONE (12:12)
[2017-08-26] MEDS ORDERED: ONDANSETRON HCL 4 MG/2 ML VIAL IV PUSH ONE (12:12)
[2017-08-26] MEDS ORDERED: LIDOCAINE HCL 1% PF 5 ML SYRINGE OTHER ONE (12:12)
[2017-08-26] MEDS ORDERED: DEXAMETHASONE SOD PHOS 4 MG/ML VIAL IV ONE (12:12)
[2017-08-26] MEDS ORDERED: GLYCOPYRROLATE 1 MG/5 ML SYRINGE IV PUSH ONE (12:12)
[2017-08-26] MEDS ORDERED: ROCURONIUM INJ 50 MG/5 ML SYRINGE IV PUSH ONE (12:12)
[2017-08-26] MEDS ORDERED: NEOSTIGMINE 5 MG/5 ML SYRINGE IV PUSH ONE (12:12)
[2017-08-26 16:00] VITALS: BP 110/61; PULSE 55; RESP 19; TEMP 98.2; O2SAT 100
[2017-08-26] MEDS ORDERED: ceFAZolin INJ 1,000 MG VIAL ONE (18:54)
[2017-08-26] MEDS ORDERED: ACETAMINOPHEN 1000 MG/100 ML 100 ML IV ONE (19:05)
[2017-08-26] MEDS: LACTATED RINGER'S 1000 ML INJ 1,000 ML IV SCH (20:26)
[2017-08-26] MEDS ORDERED: ACETAMINOPHEN 325 MG TAB PO PRN (20:30)
[2017-08-26] MEDS ORDERED: ONDANSETRON HCL 4 MG/2 ML VIAL IV PUSH PRN (20:30)
[2017-08-26] MEDS ORDERED: DOCUSATE SODIUM 100 MG CAP PO PRN (20:30)
[2017-08-26] MEDS ORDERED: diphenhydrAMINE HCL 50 MG/ML VIAL IV PUSH PRN (20:30)
[2017-08-26] MEDS ORDERED: SODIUM CHLORIDE 0.9% FLUSH 10 ML FLUSH IV FLUSH PRN (20:30)
[2017-08-26] MEDS ORDERED: NALOXONE HCL 0.4 MG/ML AMP IV PUSH PRN (20:30)
[2017-08-26] MEDS ORDERED: MORPHINE SULFATE 4 MG/ML INJ ONE (20:55)
[2017-08-26] MEDS ORDERED: MIDAZOLAM HCL 2 MG/2 ML VIAL ONE (20:55)
[2017-08-26] MEDS: SODIUM CHLORIDE 0.9% FLUSH 10 ML FLUSH IV FLUSH SCH (21:00)
[2017-08-26] MEDS ORDERED: *morphine SULFATE 4 MG/ML PERIprocedure ONLY ONE (21:09)
[2017-08-26] MEDS ORDERED: DO NOT ADM ANY ANTICOAGULANT DRUGS PRN (21:15)
[2017-08-26] MEDS: HYDROmorphone HCL PCA 6 MG/30 ML IV SCH (21:27)
--- NOTE | 2017-08-26 21:31 | MP ---
cc: Kimberly Dwyer MD, Cynthia K MD DATE OF OPERATION: 08/26/2017 PREOPERATIVE DIAGNOSIS: Large pelvic mass, pelvic pain, bilateral hydronephrosis. POSTOPERATIVE DIAGNOSIS: Large pelvic mass, pelvic pain, bilateral hydronephrosis. PROCEDURE PERFORMED: Exploratory laparotomy, left salpingo-oophorectomy. SURGEON: Kimberly Dwyer MD ANESTHESIA: General endotracheal anesthesia. FLUIDS: 1300 mL crystalloids. ESTIMATED BLOOD LOSS: 150 mL URINE OUTPUT: 200 mL clear yellow at the end of the procedure. FINDINGS: A large 20-22 week size left ovarian mass was noted. It was smooth, sent for frozen section reported as borderline tumor. The uterus appeared normal. The right ovary had a small 3 cm appearing hemorrhagic cyst. DESCRIPTION OF PROCEDURE: The patient was taken to the operating room where general anesthesia was found to be adequate. She was then prepped and draped in the normal sterile fashion in the dorsal supine position. A Mcnally catheter was inserted into the urinary bladder using sterile technique. A vertical incision was then made with the scalpel and carried down to the underlying layer of fascia. The fascia was nicked in the midline. The incision was extended superiorly and inferiorly. The rectus muscles were then in the midline. The peritoneum was identified, grasped with Sonja clamps, elevated, and entered sharply with Metzenbaum scissors. This incision was extended superiorly and inferiorly with good visualization of the bladder. The large ovarian mass was noted to be smooth, white. It was delivered through the incision. The Margarita clamps were placed on the left utero-ovarian ligament and the left infundibulopelvic ligament and the specimen was amputated from the pedicles. These were sutured with 0 Vicryl and hemostasis was assured. Several sutures were placed in the remaining broad ligament for hemostasis. The specimen left tube and ovary were sent for frozen section. The uterus appeared normal. The right ovary appeared normal. The pelvis was suctioned and irrigated. The fascia was closed in a running fashion with 0 PDS. The subcutaneous tissue was closed with interrupted sutures of 2-0 Monocryl. The subcuticular skin was closed with 4-0 Monocryl. Steri-Strips and a Prim[place] dressing were applied. The patient was awakened from anesthesia and transferred to recovery room in stable condition. Pathology was left fallopian tube and large left ovarian mass. MD CHARLEY Cerrato/ , 08:52 PM , 09:30 PM STEFF
[2017-08-26] MEDS: PCA - TOTAL MG DILAUDID DELIVERED PER SHIFT OTHER SCH (22:00)
[2017-08-26 23:00] VITALS: BP 140/60; PULSE 99; RESP 18; TEMP 97.6; O2SAT 99
[2017-08-27] MEDS: LACTATED RINGER'S 1000 ML INJ 1,000 ML IV SCH ×2 (04:12→07:56)
[2017-08-27 04:50] LABS: AUTOMATED NEUTROPHIL # 7.4 TH/MM3 (1.8-7.7); HEMATOCRIT 34.2 % (35.0-46.0); HEMOGLOBIN 11.4 GM/DL (11.6-15.3); LYMPH % 5.2 % (9.0-44.0); LYMPHOCYTE # 0.4 TH/MM3 (1.0-4.8); MEAN CELL VOLUME 80.5 FL (80.0-100.0); MEAN CORPUSCULAR HEMOGLOBIN 26.9 PG (27.0-34.0); MEAN CORPUSCULAR HGB CONC 33.4 % (32.0-36.0); MEAN PLATELET VOLUME 7.4 FL (7.0-11.0); MONO % 1.3 % (0.0-8.0); MONOCYTE # 0.1 TH/MM3 (0-0.9); NEUT % 93.5 % (16.0-70.0); PLATELET COUNT 311 TH/MM3 (150-450); RED BLOOD COUNT 4.25 MIL/MM3 (4.00-5.30); RED CELL DISTRIBUTION WIDTH 13.3 % (11.6-17.2); WHITE BLOOD COUNT 7.9 TH/MM3 (4.0-11.0)
[2017-08-27 05:05] LABS: CREATININE 0.89 MG/DL (0.50-1.00)
[2017-08-27] MEDS: PCA - TOTAL MG DILAUDID DELIVERED PER SHIFT OTHER SCH ×3 (06:19→23:55)
[2017-08-27] MEDS: SODIUM CHLORIDE 0.9% FLUSH 10 ML FLUSH IV FLUSH SCH ×2 (06:32→19:31)
[2017-08-27] MEDS ORDERED: oxyCODONE/ACETAMINOPHEN 5 MG/325 MG TAB PO PRN (07:00)
[2017-08-27] MEDS ORDERED: oxyCODONE/ACETAMINOPHEN 10 MG/325 MG TAB PO PRN (07:00)
[2017-08-27] MEDS: HYDROmorphone HCL PCA 6 MG/30 ML IV SCH (07:35)
[2017-08-27 08:00] VITALS: BP 115/58; PULSE 65; RESP 18; TEMP 97.9; O2SAT 95
--- NOTE | 2017-08-27 10:36 | HHI.PR ---
Subjective Remarks Doing well, pain is reasonably controlled, not eating well due to nausea unaware of results of frozen and I cannot find it either Objective Vital Signs Vital Signs Date Time Temp Pulse Resp B/P (MAP) Pulse Ox O2 Delivery O2 Flow Rate FiO2 08/27/17 08:00 97.9 65 18 115/58 (77) 95 08/27/17 07:35 12 08/27/17 06:19 18 08/26/17 23:00 97.6 99 18 140/60 (86) 99 08/26/17 22:55 18 08/26/17 22:00 18 08/26/17 21:45 97.6 104 14 141/71 (94) 98 Nasal Cannula 2 08/26/17 21:30 109 18 140/85 (103) 100 Nasal Cannula 2 08/26/17 21:27 14 08/26/17 21:21 08/26/17 21:15 99 20 141/66 (91) 100 Nasal Cannula 2 08/26/17 21:00 108 22 147/65 (92) 98 Nasal Cannula 08/26/17 20:45 98.1 98 16 155/76 (102) 100 Nasal Cannula 2 08/26/17 16:00 98.2 55 19 110/61 (77) 100 08/26/17 12:00 97.9 60 18 118/64 (82) 100 08/26/17 11:38 I/O 08/26/17 08/26/17 08/26/17 08/27/17 08/27/17 08/27/17 07:00 15:00 23:00 07:00 15:00 23:00 Intake Total 1400 ml Output Total 350 ml 1600 ml Balance 1050 ml -1600 ml Intake IV Total 100 ml Other 1300 ml Output Urine Total 200 ml 1600 ml Estimated Blood Loss 150 ml Result Diagram: 08/27/17 0405 08/27/17 0405 Objective Remarks Chest is clear, regular rate and rhythm. Abdomen is soft and non-distended. Incision is clean and dry. Ext no CCE. A/P Assessment and Plan Post op day 1 s/p large midline incision--exp lap and LSO for large ovarian tumor. reviewed recovery expectations need path but if benign no issues anticipated with future fertility should have back by Tuesday? Leigh Miller MD August 27, 2017 10:36
[2017-08-27] MEDS ORDERED: ACETAMINOPHEN 1000 MG/100 ML 100 ML IV ONE (10:45)
[2017-08-27] MEDS ORDERED: PROMETHAZINE HCL 25 MG TAB PO PRN (10:45)
[2017-08-27 12:00] VITALS: BP 113/56; PULSE 80; RESP 16; TEMP 97.9; O2SAT 97
--- NOTE | 2017-08-27 15:42 | HHI.PR ---
Subjective Remarks Patient seen earlier this morning. Case discussed with Dr. Miller. Patient reports pain at the incision site. Patient also complains of nausea Objective Vitals Vital Signs Date Time Temp Pulse Resp B/P (MAP) Pulse Ox O2 Delivery O2 Flow Rate FiO2 08/27/17 13:26 12 08/27/17 12:00 97.9 80 16 113/56 (75) 97 08/27/17 08:00 97.9 65 18 115/58 (77) 95 08/27/17 07:35 12 08/27/17 06:19 18 08/26/17 23:00 97.6 99 18 140/60 (86) 99 08/26/17 22:55 18 08/26/17 22:00 18 08/26/17 21:45 97.6 104 14 141/71 (94) 98 Nasal Cannula 2 08/26/17 21:30 109 18 140/85 (103) 100 Nasal Cannula 2 08/26/17 21:27 14 08/26/17 21:21 08/26/17 21:15 99 20 141/66 (91) 100 Nasal Cannula 2 08/26/17 21:00 108 22 147/65 (92) 98 Nasal Cannula 08/26/17 20:45 98.1 98 16 155/76 (102) 100 Nasal Cannula 2 08/26/17 16:00 98.2 55 19 110/61 (77) 100 I/O 08/26/17 08/26/17 08/26/17 08/27/17 08/27/17 08/27/17 07:00 15:00 23:00 07:00 15:00 23:00 Intake Total 1400 ml 100 ml Output Total 350 ml 1600 ml Balance 1050 ml -1500 ml Intake IV Total 100 ml 100 ml Other 1300 ml Output Urine Total 200 ml 1600 ml Estimated Blood Loss 150 ml Result Diagram: 08/27/17 0405 08/27/17 0405 Objective Remarks GENERAL: This is a well-nourished, well-developed patient, in no apparent distress. CARDIOVASCULAR: Normal rate and regular rhythm without murmurs, gallops, or rubs. RESPIRATORY: Good respiratory efforts. Breath sounds equal and clear to auscultation bilaterally. GASTROINTESTINAL: Midline incision site appear intact. Abdomen is slightly tender to palpation. MUSCULOSKELETAL: Extremities without cyanosis, or edema. NEURO: Alert & Oriented x4 to person, place, time, situation. Moves all ext x4 PSYCH: Appropriate mood and affect. A/P Problem List: (1) Ovarian cystic mass ICD Code: N83.209 - Unspecified ovarian cyst, unspecified side Assessment and Plan Ms. Sequeira is a 22-year-old female with a recently diagnosed very large hypodense cystic mass likely ovarian in etiology who presents to the emergency department due to worsening pelvic pain. Patient was diagnosed with a pelvic mass on 08/17/2017 after she had a CT abdomen pelvis. 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 OBGYN consult appreciated. - s/p Exploratory laparotomy, left salpingo-oophorectomy on 08/26/17. Pathology pending - Acetaminophen, [place] for pain as needed. - Wean off Dilaudid [facility] as tolerated N/V S/t above. - antiemetics as needed. - IVFs. Mild acute kidney injury Creatinine 1.06 GFR 64 on admission. - Continue gentle hydration. Avoid nephrotoxins. Full code. Ambulation, SCDs. Discharge Planning Wean off IV pain medication as tolerated. Probable dc on Tuesday based on progress and path results. Kimberley Holly MD August 27, 2017 15:42
[2017-08-27 16:00] VITALS: BP 110/53; PULSE 71; RESP 18; TEMP 98.6; O2SAT 99
[2017-08-27 19:30] VITALS: BP 118/59; PULSE 80; RESP 16; TEMP 98; O2SAT 100
[2017-08-27] MEDS: IBUPROFEN 600 MG TAB PO PRN (19:32)
[2017-08-28 02:09] VITALS: BP 101/49; PULSE 73; RESP 16; TEMP 98; O2SAT 96
[2017-08-28] MEDS: IBUPROFEN 600 MG TAB PO PRN ×2 (02:24→07:57)
[2017-08-28 04:56] VITALS: BP 103/50; PULSE 62; RESP 18; TEMP 98.6; O2SAT 99
[2017-08-28] MEDS: PCA - TOTAL MG DILAUDID DELIVERED PER SHIFT OTHER SCH (05:03)
[2017-08-28] MEDS: SODIUM CHLORIDE 0.9% FLUSH 10 ML FLUSH IV FLUSH SCH (07:44)
[2017-08-28 08:00] VITALS: BP 99/53; PULSE 64; RESP 16; TEMP 98.1; O2SAT 96
--- NOTE | 2017-08-28 10:43 | HHI.PR ---
Subjective Remarks Doing very well pain controlled with motrin and tylenol ambulating and desires to shower wants to go home today no pathology back (even frozen not found on chart) Objective Vital Signs Vital Signs Date Time Temp Pulse Resp B/P (MAP) Pulse Ox O2 Delivery O2 Flow Rate FiO2 08/28/17 08:00 98.1 64 16 99/53 (68) 96 08/28/17 05:03 18 08/28/17 04:56 98.6 62 18 103/50 (67) 99 08/28/17 02:09 98.0 73 16 101/49 (66) 96 08/27/17 23:55 16 08/27/17 19:30 98.0 80 16 118/59 (78) 100 08/27/17 16:00 98.6 71 18 110/53 (72) 99 08/27/17 13:26 12 08/27/17 12:00 97.9 80 16 113/56 (75) 97 I/O 08/27/17 08/27/17 08/27/17 08/28/17 08/28/17 08/28/17 07:00 15:00 23:00 07:00 15:00 23:00 Intake Total 100 ml Output Total 1600 ml Balance -1500 ml Intake IV Total 100 ml Output Urine Total 1600 ml # Voids 4 1 2 # Bowel Movements 1 Result Diagram: 08/27/17 04008/27/17 040 Objective Remarks Chest is clear, regular rate and rhythm. Abdomen is soft and non-distended. Incision is clean and dry. Ext no CCE. A/P Assessment and Plan Post op day 1 s/p large midline incision--exp lap and LSO for large ovarian tumor. reviewed recovery expectations need path but if benign no issues anticipated with future fertility should have back by Tuesday? 08/28/17 POD 2 doing much better and ready for discharge Leigh Miller MD August 28, 2017 10:43
[2017-08-28] MEDS ORDERED: IBUP-232 PO (10:45)
[2017-08-28] MEDS ORDERED: OXYC1TAB63 PO ×2 (10:45→11:57)
--- NOTE | 2017-08-28 10:45 | HHI.DCPOC ---
Discharge Care Plan Report Symptoms to Your Doctor -Temperature above 100.5 degrees -Redness, of incision or excessive or foul smelling drainage -Unusual pain or calf pain -Increased vaginal bleeding -Painful or difficulty urinating -Feelings of extreme sadness or anxiety after 2 weeks Goals to Promote Your Health * To prevent worsening of your condition and complications * To maintain your health at the optimal level Directions to Meet Your Goals Take your medications as prescribed Follow your dietary instruction Follow activity as directed Ensure plenty of rest for recovery Drink fluids for hydration Keep your appointments as scheduled Take your immunizations and boosters as scheduled If your symptoms worsen call your PCP, if no PCP go to Urgent Care Center or Emergency Room Smoking is Dangerous to Your Health. Avoid second hand smoke Call the 24-hour crisis hotline for domestic abuse at Leigh Miller MD August 28, 2017 10:45
--- NOTE | 2017-08-28 11:58 | HHI.DS ---
Discharge Summary Admission Date August 25, 2017 at 21:10 Discharge Date: August 28, 2017 Admitting Diagnosis Pelvic Mass, Intractable abdominal/pelvic pain (1) Ovarian cystic mass ICD Code: N83.209 - Unspecified ovarian cyst, unspecified side Procedures Exploratory laparotomy, left salpingo-oophorectomy on 08/26/17 Brief History - From Admission HPI from the admitting physician Ms. Sequeira is a 22-year-old female with recently diagnosed pelvic mass who presented to the emergency department on 08/25/2017 due to worsening pelvic pain. 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 Patient followed up with her validation consultant Dr. Dwyer. The tentative plan was to do elective surgery after financial arrangements are made. However due to worsening pain patient return to the emergency department today. ED provider contacted Dr. Dwyer who will operate on patient on 2017. CBC/BMP: 08/27/17 0405 08/27/17 0405 Significant Findings Laboratory Tests Test 08/25/17 19:30 08/25/17 20:40 08/27/17 04:05 Mean Corpuscular Hemoglobin 26.1 PG (27.0-34.0) 26.9 PG (27.0-34.0) Urine Leukocyte Esterase TRACE (NEG) Urine Bacteria RARE /hpf (NONE) Urine Mucus FEW /lpf (OCC) Creatinine 1.07 MG/DL (0.50-1.00) Estimat Glomerular Filtration Rate 64 ML/MIN (>89) 79 ML/MIN (>89) Hemoglobin 11.4 GM/DL (11.6-15.3) Hematocrit 34.2 % (35.0-46.0) Neutrophils (%) (Auto) 93.5 % (16.0-70.0) Lymphocytes (%) (Auto) 5.2 % (9.0-44.0) Lymphocytes # (Auto) 0.4 TH/MM3 (1.0-4.8) PE at Discharge GENERAL: This is a well-nourished, well-developed patient, in no apparent distress. CARDIOVASCULAR: Normal rate and regular rhythm without murmurs, gallops, or rubs. RESPIRATORY: Good respiratory efforts. Breath sounds equal and clear to auscultation bilaterally. GASTROINTESTINAL: Midline incision site appear intact. MUSCULOSKELETAL: Extremities without cyanosis, or edema. NEURO: Alert & Oriented x4 to person, place, time, situation. Moves all ext x4 PSYCH: Appropriate mood and affect. Pt update on day of discharge Patient reports she is feeling much better. Pain is controlled with ibuprofen. Hospital Course 22-year-old female with a recently diagnosed very large hypodense cystic mass likely ovarian in etiology who presents to the emergency department due to worsening pelvic pain. Patient was diagnosed with a pelvic mass on 08/17/2017 after she had a CT abdomen pelvis. 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 OBGYN consult appreciated. - s/p Exploratory laparotomy, left salpingo-oophorectomy on 08/26/17. Pathology pending. She will follow-up with [facility] outpatient for pathology results and further plans. -Ibuprofen and [place] as needed for pain. N/V S/t above. Resolved. Mild acute kidney injury Creatinine 1.06 GFR 64 on admission. -Patient received IV hydration. Renal function returned to normal. Pt Condition on Discharge: Good Discharge Disposition: Discharge Home Discharge Time: <= 30 minutes Discharge Instructions DIET: Follow Instructions for: As Tolerated, No Restrictions Activities you can perform: Regular-No Restrictions, Pelvic Rest Other Activity Instructions: no heavy lifting can shower Follow up Referrals: Appointment for Follow Up [facility] - 2-3 Days @ [facility] with Kimberly Dwyer MD New Medications: Ibuprofen (Ibuprofen) 600 Mg Tab 800 MG PO Q6H PRN for PAIN SCALE 1 TO 2, #30 TAB Oxycodone HCl/Acetaminophen (Oxycodone-Acetaminophen 5-325) 5 Mg-325 Mg Tablet 1 TAB PO Q4H PRN for PAIN GREATER THAN 5, #10 TAB Kimberley Holly MD August 28, 2017 11:58
== END 2017-08-28 12:13 | disposition home or self-care (01) | DRG 737 ==
LOC: NEPD 18:29 → NEDA 21:08 → OBSVTOIN 21:10 → N05A 08-26 11:47
PROVIDERS: ADMIT Family Medicine; ATTEND Family Medicine
PROC: 0UT10ZZ Resection of Left Ovary, Open Approach (ICD-10-PCS; 2017-08-26)
PROC: 0UT60ZZ Resection of Left Fallopian Tube, Open Approach (ICD-10-PCS; principal; 2017-08-26 19:22)
DX: C56.2 Malignant neoplasm of left ovary (principal); N17.9 Acute kidney failure, unspecified; N13.30 Unspecified hydronephrosis
CPT/HCPCS: 80053; 81001; 82565; 83690; 84132; 84703; 85025; 85610; 85730; 86850; 86900; 86901; 88305; 88331; 94150; J0131; J0690; J1100; J1170; J1200; J1885; J2250; J2270; J2405; J2710; J2765; J3010; J3480; J7030; J7042; J7120; Q0169

== ENCOUNTER 2017-09-19 07:57 | Emergency (ER) | payer MEDICAID ==
[~2017-09-19] VITALS: Ht 167.6 cm; Wt 92.4 kg
[~2017-09-19 07:57] MED LIST changes: -AMOX250S2 PO; -CLIN1CAP5 PO; -HYDR7.5S PO; +IBUP-232 PO; +OXYC1TAB63 PO; -PERC5TAB12 PO
[2017-09-19 08:00] VITALS: BP 132/67; PULSE 79; RESP 16; TEMP 97.8; O2SAT 98
[2017-09-19] MEDS ORDERED: guaiFENesin/CODEINE SYRUP 200 MG/20 MG/10 ML CUP PO ONE (08:30)
[2017-09-19] MEDS ORDERED: RESP: ALBUTEROL 2.5 MG/3 ML NEB (SCH) INH ONE (08:30)
--- NOTE | 2017-09-19 08:42 | PD ---
HPI Chief Complaint: Cold / Flu Symptoms Time Seen by Provider: 08:11 Travel History International Travel<30 days: No Contact w/Intl Traveler<30days: No Traveled to known affect area: No History of Present Illness HPI 22yo F presents to the ED with c/o cough for 2 weeks. Pt said the coughing is worst after exercising or lying down at night. Denies any chest pain, sob, fever, n/v, abdominal pain, focal weakness or numbness. Never been diagnosed with asthma or smoke cigarette. PFSH Past Medical History Autoimmune Disease: No Cancer: No Cardiovascular Problems: No Diminished Hearing: No Endocrine: No Gastrointestinal Disorders: No Genitourinary: No Immune Disorder: No Implanted Vascular Access Dvce: No Musculoskeletal: No Neurologic: No Psychiatric: No Reproductive: Yes Respiratory: No Immunizations Current: Yes ?: Not LMP: 08/27/17 Menopausal: No : 0 Para: 0 Ovarian Cysts: Yes Past Surgical History Abdominal Surgery: No Cardiac Surgery: No Ear Surgery: No Endocrine Surgery: No Eye Surgery: No Genitourinary Surgery: No Gynecologic Surgery: No Neurologic Surgery: No Oral Surgery: No (TONSILECTOMY. ) Thoracic Surgery: No Tonsillectomy: Yes (2015) Other Surgery: Yes Social History Alcohol Use: No Tobacco Use: No Substance Use: No Allergies-Medications (Allergen,Severity, Reaction): Coded Allergies: ciprofloxacin (Unverified Adverse Reaction, Intermediate, N/V, 09/19/17) Reported Meds & Prescriptions Reported Meds & Active Scripts Active No Active Prescriptions or Reported Medications Review of Systems Except as stated in HPI: all other systems reviewed are Neg Physical Exam Narrative GENERAL: 22yo F not in distress. SKIN: Focused skin assessment warm/dry. HEAD: Atraumatic. Normocephalic. EYES: Pupils equal and round. No scleral icterus. No injection or drainage. ENT: No nasal bleeding or discharge. Mucous membranes pink and moist. NECK: Trachea midline. No JVD. CARDIOVASCULAR: Regular rate and rhythm. No murmur appreciated. RESPIRATORY: No accessory muscle use. Clear to auscultation. Breath sounds equal bilaterally. GASTROINTESTINAL: Abdomen soft, non-tender, nondistended. MUSCULOSKELETAL: No obvious deformities. No clubbing. No cyanosis. No edema. NEUROLOGICAL: Awake and alert. No obvious cranial nerve deficits. Motor grossly within normal limits. Normal speech. PSYCHIATRIC: Appropriate mood and affect; insight and judgment normal. Data Data Last Documented VS Vital Signs Date Time Temp Pulse Resp B/P (MAP) Pulse Ox O2 Delivery O2 Flow Rate FiO2 09/19/17 08:00 97.8 79 16 132/67 (88) 98 Orders Orders Chest, Single Ap (09/19/17 08:16) Albuterol Neb (Albuterol Neb) (09/19/17 08:30) Guaifen-Cod 200-20 Mg/10ml Liq (Robituss (09/19/17 08:30) MDM Medical Decision Making Medical Screen Exam Complete: Yes Emergency Medical Condition: Yes Differential Diagnosis Asthma vs. pneumonia vs. bronchitis Narrative Course 22yo F here with cough for 2 weeks. Pt is very well appearing and has no chest pain or sob. CXR negative. Vital signs normal. Saturating at 98% on RA. Pt given albuterol and robitussin with no improvement. Pt is adamant about receiving antibiotics. I explained to her that it may be undiagnosed asthma and she should get pulmonary function test as outpatient. Said she had bronchitis before and got better with antibiotics. After explaining that it is likely viral, will prescribe azithromycin. Return precautions given. Diagnosis Primary Impression: Cough Patient Instructions: General Instructions Departure Forms: Tests/Procedures Additional Instructions: Please follow up with your primary care physician in 2-3 days. Return to the ED if symptoms worsen. Med/Other Pt SpecificInfo: Prescription(s) given Scripts Azithromycin (Zithromax Z-Estrada) 250 Mg Dspk 250 MG PO DIRECTED for Infection, #1 DSPK 0 Refills 500 MG (2 tabs) day 1, then 1 tab days 2-5. Prov: Sissy Hammond DO 09/19/17 Disposition: 01 DISCHARGE HOME Condition: Stable Sissy Hammond DO Sep 19, 2017 08:42
--- NOTE | 2017-09-19 08:57 | RADRPT ---
EXAM DATE: 09/19/2017 8:45 AM EDT AGE/SEX: 22 years / Female INDICATIONS: Cough CLINICAL DATA: This is the patient's initial encounter. Patient reports that signs and symptoms have been present for 2 weeks and indicates a pain score of 0/10. MEDICAL/SURGICAL HISTORY: None. None. COMPARISON: [facility], CHEST SINGLE AP, 09/09/2014. . FINDINGS: A single AP view of the chest demonstrates the lungs to be symmetrically aerated without evidence for focal pleural or parenchymal opacities. The cardiomediastinal contours are unremarkable. Osseous s tructures are intact. CONCLUSION: 1. No acute cardiopulmonary disease. Electronically signed by: Gerardo Naik MD 09/19/2017 8:56 AM EDT
[2017-09-19] MEDS ORDERED: ZITHTAB PO (10:38)
== END 2017-09-19 10:52 | disposition home or self-care (01) ==
LOC: PHED 07:57
DX: R05 Cough (principal); Z88.1 Allergy status to other antibiotic agents
CPT/HCPCS: 71045; 94664; 99283; J7613